=== PATIENT | male | born 2000 | race Hispanic/Latino ===

== ENCOUNTER 2025-04-11 13:38 | Observation (INO) | payer BC ==
[2025-04-11] VITALS (18 sets, daily range): BP systolic 104–119; BP diastolic 56–73; PULSE 60–76; RESP 13–20; TEMP 96.8–97.9
[~2025-04-11] VITALS: Ht 177.8 cm; Wt 74.6 kg
--- NOTE | 2025-04-11 13:48 | ERN ---
ED Note History of Present Illness Stated Complaint: ABD PAIN Chief Complaint: Abdominal Pain Time Seen by MD: 13:45 Dictation: PATIENT IS A 24-YEAR-OLD MALE HERE WITH HIS MOTHER WITH COMPLAINTS OF DIFFUSE LOWER ABDOMINAL PAIN FOR TWO DAYS. HE DENIES FEVER CHILLS NAUSEA VOMITING NO CHANGE IN URINATION. STATES HIS LAST BOWEL MOVEMENT WAS YESTERDAY AND IT WAS NORMAL. NO PRIMARY CARE DOCTOR HAS NOT TAKEN ANYTHING TODAY PRIOR TO ARRIVAL FOR PAIN. FULL WEIGHT-BEARING WALKING TO HIS ROOM. Allergies: Coded Allergies: No Known Drug Allergies (Unverified Allergy, Unknown, 04/11/25) Past Medical History Past Medical History: No Pertinent History Surgical History: None RN Note Reviewed/Agreed w/PFSH: Yes Review of System Dictation CONSTITUTIONAL: NEGATIVE EXCEPT FOR HPI HEAD/FACE: NEGATIVE EXCEPT FOR HPI EENT: NEGATIVE EXCEPT FOR HPI RESPIRATORY: NEGATIVE EXCEPT FOR HPI GASTROINTESTINAL/ABDOMINAL: NEGATIVE EXCEPT FOR HPI DIFFUSE LOWER ABDOMINAL PAIN GENITOURINARY: NEGATIVE EXCEPT FOR HPI MUSCULOSKELETAL: NEGATIVE EXCEPT FOR HPI INTEGUMENTARY: NEGATIVE EXCEPT FOR HPI NEUROLOGICAL/PSYCH: NEGATIVE EXCEPT FOR HPI HEMATOLOGIC/LYMPHATIC: NEGATIVE EXCEPT FOR HPI ALL SYSTEMS NEGATIVE, EXCEPT NOTED ABOVE. 13 POINT REVIEW OF SYSTEMS ASSESSED AND ALL NEGATIVE EXCEPT FOR ABOVE. Initial Vital Sign VS Vital Signs Date Time Temp Pulse Resp B/P (MAP) Pulse Ox O2 Delivery O2 Flow Rate FiO2 04/11/25 13:41 99.0 89 18 122/78 97 Room Air 0 04/11/25 14:11 21 Physical Exam Dictation VITAL SIGNS REVIEWED GENERAL APPEARANCE: ALERT, ORIENTED X 3, MY ACUTE DISTRESS, WELL DEVELOPED, NOURISHED. HEAD AND FACE: NON-TRAUMATIC. EYES: PERRL, PINK CONJUNCTIVAS, EYELID NO TRAUMA, ANTERIOR CHAMBER WITH ARCUS SENILIS. EARS: PINNAS INTACT AND NO SIGNS OF TRAUMA OR ERYTHEMA EAR CANALS CLEAR AND NO DISCHARGE TM NO ERYTHEMA NOSE: NO DISCHARGE, NO BLEEDING. OROPHARYNX: MOUTH NORMAL, TONGUE PINK, PHARYNX CLEAR,NO ERYTHEMA, TONSILS NO EXUDATES, NO ABSCESSES NOTED, MUCOUS MEMBRANE MOIST NECK: SUPPLE, NON-TENDER, NO THYROMEGALY, NO MASSES, NO JVD, NO BRUITS BREAST:DEFERRED CHEST:NO TENDERNESS, NO CREPITUS, NO PARADOXICAL MOVEMENT, NO RETRACTIONS LUNGS:CLEAR, WELL-VENTILATED, SYMMETRIC, NO RALES, NO WHEEZING, NO RHONCHI, NO STRIDOR, GOOD BREATH SOUNDS BILATERALLY HEART: REGULAR RATE, REGULAR RHYTHM, NO MURMUR, NO GALLOPS VA MILD PERIUMBILICAL TENDERNESS WITH PALPATION. NO REBOUND TENDERNESS. NEGATIVE CVAT BILATERALLY RECTAL: DEFERRED GENITAL: DEFERRED NEUROLOGICAL: NORMAL SPEECH, MOTOR FUNCTION INTACT, SENSORY FUNCTION INTACT MUSCULOSKELETAL: NECK NONTENDER, FULL RANGE OF MOTION, BACK NONTENDER, FULL RANGE OF MOTION, EXTREMITIES: NONTENDER, FULL RANGE OF MOTION SKIN: COLOR PINK, DRY, NO TURGOR, NO RASH, NO LACERATIONS, NO ABRASIONS, NO CONTUSIONS. LYMPHATIC: DEFERRED Results (Laboratory/Radiology) Laboratory/Radiology Laboratory Tests Test 04/11/25 13:53 White Blood Count 12.8 K/uL (4.8-10.8) H Red Blood Count 5.30 MIL/uL (4.50-6.20) Hemoglobin 15.3 g/dL (14.0-18.0) Hematocrit 45.0 % (42-54) Mean Corpuscular Volume 84.9 fL (79-99) Mean Corpuscular Hemoglobin 28.9 pg (27.0-33.0) Mean Corpuscular Hemoglobin Concent 34.0 g/dL (32.0-36.0) Red Cell Distribution Width 13.2 % (11.0-15.5) Platelet Count 283 K/uL (130-400) Mean Platelet Volume 9.4 fL (7.5-10.5) Immature Granulocyte % (Auto) 0.2 % (0-1) Neutrophils (%) (Auto) 68.4 % (40.0-77.0) Lymphocytes (%) (Auto) 19.3 % (21.0-51.0) L Monocytes (%) (Auto) 9.5 % (3.0-13.0) Eosinophils (%) (Auto) 2.3 % (0.0-8.0) Basophils (%) (Auto) 0.3 % (0.0-5.0) Neutrophils # (Auto) 8.8 K/uL (1.8-7.7) H Lymphocytes # (Auto) 2.5 K/uL (1.0-4.8) Monocytes # (Auto) 1.2 K/uL (0.1-1.0) H Eosinophils # (Auto) 0.30 K/uL (0.00-0.70) Basophils # (Auto) 0.04 K/uL (0.00-0.20) Absolute Immature Granulocyte (auto 0.03 K/uL (0-1) Nucleated Red Blood Cells 0.0 % (0.0-0.19) Urine Color YELLOW (YELLOW) Urine Appearance CLEAR (CLEAR) Urine pH 6.0 (5.0-8.0) Urine Specific [place] 1.033 (1.001-1.031) Urine Protein 30 mg/dL (NEGATIVE) H Urine Glucose (UA) NEGATIVE mg/dL (NEGATIVE) Urine Ketones 5 mg/dL (NEGATIVE) H Urine Occult Blood NEGATIVE (NEGATIVE) Urine Nitrate NEGATIVE (NEGATIVE) Urine Bilirubin NEGATIVE mg/dL (NEGATIVE) Urine Urobilinogen 4.0 mg/dL (0.2-1.0) H Urine Leukocyte Esterase NEGATIVE Yeni/uL Urine RBC 2-5 /HPF (0-1) H Urine WBC 2-5 /HPF (0-1) H Urine Squamous Epithelial Cells RARE /HPF (0-2) Urine Bacteria None /HPF (None Seen) Sodium Level 142 mmol/L (136-145) Potassium Level 3.4 mmol/L (3.5-5.1) L Chloride Level 100 mmol/L (101-111) L Carbon Dioxide Level 31 mmol/L (21-32) Blood Urea Nitrogen 7 mg/dL (7-18) Creatinine 0.9 mg/dL (0.5-1.3) Glomerular Filtration Rate Calc 124 mL/min (>90) Random Glucose 110 mg/dL (70-105) H Total Calcium 9.5 mg/dL (8.5-10.1) Lipase 18 U/L (16-77) 1508/RIGHT LOWER QUADRANT ULTRASOUND NONSPECIFIC FO APPENDICITIS. WE WILL FOLLOW WITH CT WITH IV CONTRAST TO RULE The lung bases appear clear. No pleural effusions are seen. LIVER: The liver is diffusely low in density, consistent with fatty infiltration. There are no focal hepatic lesions. GALLBLADDER AND BILE DUCTS: The gallbladder appears within normal limits. No radioopaque gallstones are seen. No biliary ductal dilatation is evident. PANCREAS: Unremarkable. SPLEEN: Unremarkable. ADRENAL GLANDS: Unremarkable. KIDNEYS, URETERS, AND BLADDER: The kidneys appear within normal limits. There is no hydronephrosis or hydroureter. No urinary calculi are seen. STOMACH AND BOWEL: Unremarkable appearance of the stomach and bowel. No evidence of bowel obstruction. No evidence suggesting enteritis or colitis. APPENDIX: Thickened appendix with adjacent stranding, consistent with acute appendicitis. PERITONEUM: Small amount of free fluid. No free air or fluid collection. LYMPH NODES: No lymphadenopathy is evident. REPRODUCTIVE: Unremarkable as visualized. VASCULATURE: No evidence of abdominal aortic aneurysm. BONES: No aggressive appearing osseous lesion. No acute osseous pathology evident. IMPRESSION: 1. Thickened appendix with adjacent stranding, consistent with acute appendicitis. 2. Small amount of free fluid. No free air or fluid collection. /[facility] Labs Reviewed?: Yes ED Course ED Course Orders Procedure Category Date Status Time Cbc With Differential LAB 04/11/25 Complete 13:47 Urinalysis Profile LAB 04/11/25 Complete 13:47 0.9%Nacl 1000ml (Ns PHA 04/11/25 Complete 1000ml) 14:00 Ketorolac PHA 04/11/25 Complete Tromethamine 30mg/Ml 14:00 Lipase LAB 04/11/25 Complete 13:47 Basic Metabolic Panel LAB 04/11/25 Complete 13:47 Us Abd Limited/Abd US 04/11/25 Resulted Wall 14:07 Ct Abdomen/Pelvis CT 04/11/25 Resulted W/Contrast 15:08 Iohexol (Omnipaque) PHA 04/11/25 Complete 15:19 Zosyn 3.375gm+Ns 50ml PHA 04/11/25 Complete (Zosyn 3.375gm+Ns 16:00 General Surgery CONPHYSVC 04/11/25 Transmitted Consult 16:03 Current Medications Medications (Trade) Dose Ordered Sig/[place] Route PRN Reason Start Time Stop Time Status Last Admin Dose Admin Iohexol (Omnipaque) 75 ml STK-MED ONCE IV 04/11/25 15:19 04/11/25 15:23 DC Ketorolac Tromethamine (toRADol) 30 mg ONCE ONCE IVP 04/11/25 14:00 04/11/25 14:01 DC 04/11/25 14:08 Piperacillin Sod/ Tazobactam Sod (Zosyn 3.375gm+NS 50ml) 3.375 gm ONCE ONCE IVPB 04/11/25 16:00 04/11/25 16:01 DC 04/11/25 16:16 Sodium Chloride 1,000 ml @ 0 mls/hr ONCE ONCE IV 04/11/25 14:00 04/11/25 14:01 DC 04/11/25 14:07 Vital Signs Date Time Temp Pulse Resp B/P (MAP) Pulse Ox O2 Delivery O2 Flow Rate FiO2 04/11/25 14:11 98.1 82 16 130/79 98 Room Air* 0 21 04/11/25 13:41 99.0 89 18 122/78 97 Room Air 0 1600/SPOKE WITH PATIENT AT BEDSIDE MOTHER WAS NOT AT BEDSIDE AT THE PRESENT TIME. HE HAS MADE AWARE THAT HE HAS A ACUTE APPENDICITIS I WILL START HIM ON BROAD-SPECTRUM ANTIBIOTICS AND HE WILL BE ADMITTED TO THE HOSPITAL WITH CONSULTATION TO GENERAL SURGERY. 1628/SPOKE WITH /GENERAL SURGERY AND REVIEWED CT AND LABS HE SAID TO MAINTAIN PATIENT NPO AND HE WOULD PROBABLY TAKE HIM TO SURGERY THIS AFTERNOON. SPOKE WITH , HE AGREED TO ADMIT PATIENT Medical Decision Making MDM MDM: DIFFERENTIAL DIAGNOSIS: APPENDICITIS VERSUS DIVERTICULITIS/UTI/HERNIA/ELECTROLYTE IMBALANCE/DEHYDRATION RATIONALE: TESTS CONSIDERED AND ORDERED SECONDARY TO SHARED DECISION MAKING INCLUDE: LABS, AND RADIOLOGY PREVIOUS OUTSIDE RECORDS REVIEWED: OLD ER VISITS. RISK OF COMPLICATION AND/OR MORBIDITY OR MORTALITY OF PATIENT MANAGEMENT: MODERATE MEDICATIONS-PER MEDICATION RECONCILIATION NEED FOR HOSPITALIZATION: PATIENT DOES MEET CRITERIA FOR HOSPITALIZATION. SURGICAL CONSULTATION WITH APPENDECTOMY NEED FOR EMERGENCY MAJOR/MINOR SURGERY: APPENDECTOMY THERE ARE NO SOCIAL CONCERNS WITH THIS PATIENT. PRESCRIPTION DRUG MANAGEMENT PRESCRIPTIONS WILL INCLUDE SYMPTOMATIC CARE PATIENT'S PRIOR EXTERNAL MEDICAL RECORDS FROM OTHER ER VISITS WERE REVIEWED BY ME INDICATED. PRIOR TESTING AND RESULTS FROM PREVIOUS VISITS WERE REVIEWED. PRIOR TESTS WERE TAKEN INTO ACCOUNT WITH MEDICAL DECISION MAKING AND RESOURCE UTILIZATION, INDEPENDENT HISTORIAN/HISTORIANS WERE USED TO OBTAIN COMPLETE MEDICAL HISTORY. I INDEPENDENTLY INTERPRETED THE TEST THAT WERE PERFORMED, RESULTS WERE REVIEWED BY ME AND CONSIDERED FINDINGS ON RADIOLOGY IF ORDERED. MEDICAL MANAGEMENT AND EXAMINATION INTERPRETATION DISCUSSIONS WERE HAD BY ME WITH OTHER QUALIFIED HEALTHCARE PROFESSIONALS INDICATED FOR THE PATIENT'S CARE. DX & DISP Disposition: Inpatient Decision to Admit Time: 16:05 Departure Impression: Primary Impression: Acute appendicitis Condition: Stable Referrals: SELF,REFERRAL (PCP) Time of Disposition: 16:05 I have reviewed the case, and I agree with, Diagnosis and Plan AJITH BROTHERS [employer] REP Apr 11, 2025 13:48
[2025-04-11 14:00] LABS: BASOPHILS # (AUTO) 0.04 K/uL (0.00-0.20); BASOPHILS % (AUTO) 0.3 % (0.0-5.0); EOSINOPHILS % (AUTO) 2.3 % (0.0-8.0); IMMATURE GRANULOCYTE ABSOLUTE 0.03 K/uL (0-1); LYMPHOCYTES # (AUTO) 2.5 K/uL (1.0-4.8); LYMPHOCYTES % (AUTO) 19.3 % (21.0-51.0); MEAN CORPUSCULAR HEMOGLOBIN 28.9 pg (27.0-33.0); MEAN CORPUSCULAR VOLUME 84.9 fL (79-99); MONOCYTES # (AUTO) 1.2 K/uL (0.1-1.0); MONOCYTES % (AUTO) 9.5 % (3.0-13.0); NEUTROPHILS # (AUTO) 8.8 K/uL (1.8-7.7); NEUTROPHILS % (AUTO) 68.4 % (40.0-77.0); PLATELET COUNT (AUTO) 283 K/uL (130-400); RED CELL DISTRIBUTION WIDTH 13.2 % (11.0-15.5); WHITE BLOOD COUNT (AUTO) 12.8 K/uL (4.8-10.8)
[2025-04-11 14:07] LABS: APPEARANCE,URINE CLEAR (CLEAR); BILIRUBIN,URINE NEGATIVE (NEGATIVE); COLOR,URINE YELLOW (YELLOW); GLUCOSE, URINE (UA) NEGATIVE (NEGATIVE); KETONES,URINE 5 mg/dL (NEGATIVE); LEUKOCYTE ESTERASE ,URINE NEGATIVE Leu/uL (NEGATIVE); NITRATE,URINE NEGATIVE (NEGATIVE); OCCULT BLOOD,URINE NEGATIVE (NEGATIVE); PROTEIN,URINE 30 mg/dL (NEGATIVE)
[2025-04-11] MEDS: 0.9%NACL 1000ML 1,000 ML IV ONE (14:07)
[2025-04-11] MEDS: ketOROlac 30MG VIAL (30MG/ML) IVP ONE (14:08)
[2025-04-11 14:09] LABS: ADD UA MICROSCOPIC YES
[2025-04-11 14:11] LABS: MUCUS,URINE FEW LPF (None Seen); SQUAMOUS EPITHELIAL CELL,UR RARE /HPF (0-2)
[2025-04-11 14:17] LABS: CREATININE 0.9 mg/dL (0.5-1.3); POTASSIUM 3.4 mmol/L (3.5-5.1)
[2025-04-11] MEDS ORDERED: IOHEXOL-350 75 ML VIAL IV ONE (15:19)
--- NOTE | 2025-04-11 15:54 | HMCIMG ---
EXAM: CT Abdomen and Pelvis with IV contrast CLINICAL HISTORY: PERIUMBILICAL AND RIGHT LOWER QUADRANT PAIN TENDERNESS TECHNIQUE: Axial computed tomography images of the abdomen and pelvis with intravenous contrast. CONTRAST: with intravenous contrast. COMPARISON: None provided. FINDINGS: LUNG BASES: The lung bases appear clear. No pleural effusions are seen. LIVER: The liver is diffusely low in density, consistent with fatty infiltration. There are no focal hepatic lesions. GALLBLADDER AND BILE DUCTS: The gallbladder appears within normal limits. No radioopaque gallstones are seen. No biliary ductal dilatation is evident. PANCREAS: Unremarkable. SPLEEN: Unremarkable. ADRENAL GLANDS: Unremarkable. KIDNEYS, URETERS, AND BLADDER: The kidneys appear within normal limits. There is no hydronephrosis or hydroureter. No urinary calculi are seen. STOMACH AND BOWEL: Unremarkable appearance of the stomach and bowel. No evidence of bowel obstruction. No evidence suggesting enteritis or colitis. APPENDIX: Thickened appendix with adjacent stranding, consistent with acute appendicitis. PERITONEUM: Small amount of free fluid. No free air or fluid collection. LYMPH NODES: No lymphadenopathy is evident. REPRODUCTIVE: Unremarkable as visualized. VASCULATURE: No evidence of abdominal aortic aneurysm. BONES: No aggressive appearing osseous lesion. No acute osseous pathology evident. IMPRESSION: 1. Thickened appendix with adjacent stranding, consistent with acute appendicitis. 2. Small amount of free fluid. No free air or fluid collection. /[place]
--- NOTE | 2025-04-11 16:12 | HMCIMG ---
EXAM: US examination Appendix CLINICAL HISTORY: PERIUMBILICAL AND LEFT LOWER QUADRANT TENDERNESS RULE OUT APPY TECHNIQUE: Real-time ultrasound examination performed with image documentation. COMPARISON: None provided. FINDINGS: A noncompressible tubular structure measuring 10 mm is noted in the right lower quadrant which likely represents an inflamed appendix. IMPRESSION: Noncompressible tubular structure measuring 10 mm is noted in the right lower quadrant which likely represents an inflamed appendix. This likely represents acute appendicitis and clinical correlation is recommended. /[place]
[2025-04-11] MEDS: ZOSYN 3.375GM +NS 50ML IVPB ONE (16:16)
--- NOTE | 2025-04-11 16:48 | HP ---
[facility] HISTORY AND PHYSICAL Date of Service: Apr 11, 2025 Time of Service: 16:48 HISTORY OF PRESENT ILLNESS: This 24-year-old male with no significant past medical history who presented to the hospital secondary to abdominal pain. The patient states his pain has been present for the past two days and is localized mostly in the right lower quadrant. He denied any nausea, vomiting, changes in his appetite, changes in his bowel movement. Denied any any melena, hematochezia, hematemesis. Denied any fever, chills, shortness for breath, chest pain at rest or with exertion, history of bleeding disorder. He had a previous surgery when he was 14 years old in the left arm secondary to trauma. He is active at home and denies any falls, syncopal episode. Patient's brother is present at bedside. Denied any other symptoms. Denied any dysuria, myalgia, new onset rash. Labs showed white count of 12.8, hemoglobin was 15.3, platelet count was 283 K, sodium was 142 potassium was 3.4, creatinine is 0.[address] abdomen pelvis findings which was consistent with acute appendicitis. REVIEW OF SYSTEMS CONSTITUTIONAL: Denies fevers, chills, or night sweats. No unintentional weight loss reported. NEUROLOGICAL: Denies headache, amaurosis fugax, motor weakness, sensory deficit, vertigo/spinning sensation, gait abnormalities, or tremors. ENT: No hearing loss, otalgia, otorrhea, rhinitis, rhinorrhea, hoarseness, or sore throat. CARDIOVASCULAR: Denies any exertional angina, dyspnea on exertion, orthopnea, paroxysmal nocturnal dyspnea, palpitations, life-threatening arrhythmias, claudication. PULMONARY: Denies any shortness of breath, cough, phlegm/sputum, hemoptysis, pleuritic chest pain. GASTROINTESTINAL: Positive for abdominal pain. Denied any nausea, vomiting, diarrhea, constipation melena, hematochezia, hematemesis GENITOURINARY: Denies frequency, urgency, nocturia, hematuria or incontinence (Storage/Irritative symptoms.) Low urinary stream, straining to void, urinary intermittency or hesitancy, splitting of the voiding stream, terminal dribbling. ENDOCRINOLOGIC: Denies polyuria, polydipsia, polyphagia or heat/cold intolerances. HEMATOLOGIC: Denies thrombophilia/previous clots, or coagulopathy/bleeding disorders. ONCOLOGIC: Denies personal history of malignancy. DERMATOLOGIC: Denies rashes or pruritus. PSYCHIATRIC: Denies any suicidal or homicidal ideation. Denies hallucinations. PAST MEDICAL HISTORY: No significant past medical history PAST SURGICAL HISTORY: He has had surgery on the left arm PAST SOCIAL HISTORY: Denied any smoking, alcohol, drug FAMILY HISTORY: Denied any pertinent family history Coded Allergies: No Known Drug Allergies (Unverified Allergy, Unknown, 04/11/25) PHYSICAL EXAM GENERAL APPEARANCE: The patient is awake, alert, and oriented, in no acute cardiopulmonary distress. NEUROLOGICAL: Cranial nerves II-XII grossly intact. Motor is 5/5 in bilateral upper and lower extremities proximal to distal. No sensory deficits. HEENT: Face is symmetric. Pupils are equal and reactive. Extraocular movements are intact. NECK: Supple. No JVD. No thyromegaly. No submental, submandibular, pre- /postauricular, occipital or supraclavicular lymphadenopathy. CHEST: Normal chest expansion. No Telemetry. LUNGS: Absence of any rales, rhonchi or any wheezing. CARDIOVASCULAR: Regular. S1 and S2 normal. No appreciable rubs, murmurs or gallops. ABDOMEN: Soft, tenderness to palpation in the right lower quadrant. No rebound, no guarding present. : Deferred. No Terry. EXTREMITIES: Non-edematous and not cyanotic. No clubbing. Good capillary refill. SKIN: No skin breakdown. Vital Sign (Last 24 Hours) 04/11/25 14:11 Temp 98.1 Pulse 82 Resp 16 B/P (MAP) 130/79 Pulse Ox 98 O2 Delivery Room Air* O2 Flow Rate 0 FiO2 21 LABS: Laboratory: Test 04/11/25 13:53 Range/Units White Blood Count 12.8 H 4.8-10.8 K/uL Red Blood Count 5.30 4.50-6.20 MIL/uL Hemoglobin 15.3 14.0-18.0 g/dL Hematocrit 45.0 42-54 % Mean Corpuscular Volume 84.9 79-99 fL Mean Corpuscular Hemoglobin 28.9 27.0-33.0 pg Mean Corpuscular Hemoglobin Concent 34.0 32.0-36.0 g/dL Red Cell Distribution Width 13.2 11.0-15.5 % Platelet Count 283 130-400 K/uL Mean Platelet Volume 9.4 7.5-10.5 fL Immature Granulocyte % (Auto) 0.2 0-1 % Neutrophils (%) (Auto) 68.4 40.0-77.0 % Lymphocytes (%) (Auto) 19.3 L 21.0-51.0 % Monocytes (%) (Auto) 9.5 3.0-13.0 % Eosinophils (%) (Auto) 2.3 0.0-8.0 % Basophils (%) (Auto) 0.3 0.0-5.0 % Neutrophils # (Auto) 8.8 H 1.8-7.7 K/uL Lymphocytes # (Auto) 2.5 1.0-4.8 K/uL Monocytes # (Auto) 1.2 H 0.1-1.0 K/uL Eosinophils # (Auto) 0.30 0.00-0.70 K/uL Basophils # (Auto) 0.04 0.00-0.20 K/uL Absolute Immature Granulocyte (auto 0.03 0-1 K/uL Nucleated Red Blood Cells 0.0 0.0-0.19 % Urine Color YELLOW YELLOW Urine Appearance CLEAR CLEAR Urine pH 6.0 5.0-8.0 Urine Specific [place] 1.033 H 1.001-1.031 Urine Protein 30 H NEGATIVE mg/dL Urine Glucose (UA) NEGATIVE NEGATIVE mg/dL Urine Ketones 5 H NEGATIVE mg/dL Urine Occult Blood NEGATIVE NEGATIVE Urine Nitrate NEGATIVE NEGATIVE Urine Bilirubin NEGATIVE NEGATIVE mg/dL Urine Urobilinogen 4.0 H 0.2-1.0 mg/dL Urine Leukocyte Esterase NEGATIVE NEGATIVE Yeni/uL Urine RBC 2-5 H 0-1 /HPF Urine WBC 2-5 H 0-1 /HPF Urine Squamous Epithelial Cells RARE 0-2 /HPF Urine Bacteria None None Seen /HPF Sodium Level 142 136-145 mmol/L Potassium Level 3.4 L 3.5-5.1 mmol/L Chloride Level 100 L 101-111 mmol/L Carbon Dioxide Level 31 21-32 mmol/L Blood Urea Nitrogen 7 7-18 mg/dL Creatinine 0.9 0.5-1.3 mg/dL Glomerular Filtration Rate Calc 124 >90 mL/min Random Glucose 110 H 70-105 mg/dL Total Calcium 9.5 8.5-10.1 mg/dL Lipase 18 16-77 U/L DIAGNOSTICS / RADIOLOGY: CT abdomen is concerning for acute appendicitis. ASSESSMENT: Acute appendicitis POA PLAN: - patient to be admitted to medical-surgical unit -in reference to acute appendicitis. The patient will be started on IV Zosyn, IV fluids. The patient will be NPO for now. Patient was evaluated by surgery who recommended surgery. Plan for tentative surgery. - obtain PT and PTT, obtain a type and screen -further orders for hospitalization Plan of care was discussed with patient and patient's brother at bedside. Advanced Care Planning Which of the following were discussed: Hospice care: Yes __ No _x_ Therapeutic options: Yes __ No __ Advance directives: Yes __ No __ Other discussions: Pt is full code Discussed with who?: patient (Patient, family or surrogates) Voluntary nature of this service was explained to the patient? Yes _x_ No __ Amount of time spent: 25 minutes GOMEZ Garner MD, MD Apr 11, 2025 16:48
[2025-04-11] MEDS ORDERED: morPHINE 2 MG SYG IVP PRN (17:00)
[2025-04-11] MEDS: 0.9%NACL 1000ML 1,000 ML IV SCH (17:02)
[2025-04-11 17:07] LABS: INR 0.95 (0.85-1.15); PROTHROMBIN TIME 10.1 SEC (9.6-11.6)
[2025-04-11 17:09] LABS: PARTIAL THROMBOPLASTIN TIME 32.1 SEC (26.3-35.5)
[2025-04-11] MEDS ORDERED: LIDOCAINE PF 100MG/5ML (2%) SYRINGE 5ML ONE (18:14)
[2025-04-11] MEDS ORDERED: dexaMETHasone SOD PHOSPHATE 4 MG/ML 1ML VIAL ONE (18:14)
[2025-04-11] MEDS ORDERED: rocuRONium bROMide 10MG/1ML 5ML VL ONE (18:15)
[2025-04-11] MEDS ORDERED: SUCCINYLCHOLINE CHLORIDE 20 MG/ML 10 ML VIAL ONE (18:15)
[2025-04-11] MEDS ORDERED: MIDAZOLAM HCL 1 MG/ML 2ML VIAL ONE (18:15)
[2025-04-11] MEDS ORDERED: FENTanyl CITRate PF 50 MCG/1 ML 2ML VIAL ONE ×2 (18:15→18:48)
[2025-04-11] MEDS ORDERED: proPOFol 10 MG/ML 20ML VIAL IV ONE (18:15)
[2025-04-11] MEDS ORDERED: ondanSETRON 4MG INJ ONE (18:15)
[2025-04-11] MEDS ORDERED: ROPivacaine 0.5% 5MG/ML 30ML ONE (18:17)
[2025-04-11] MEDS ORDERED: morPHINE 2 MG SYG IV PRN (18:30)
[2025-04-11] MEDS ORDERED: ondanSETRON 4MG INJ IVP PRN (18:30)
[2025-04-11] MEDS ORDERED: GLYCOPYRROLATE 0.2 MG/ML 5 ML VIAL ONE (18:58)
[2025-04-11] MEDS ORDERED: NEOSTIGMINE METHYLSULFATE 1MG/ML IV ONE (18:58)
[2025-04-11] MEDS ORDERED: SUGAMMADEX SODIUM 200 MG/2 ML VIAL IV ONE (19:12)
--- NOTE | 2025-04-11 19:13 | OP ---
Operative Note: DATE OF PROCEDURE: 04/11/25 SURGEON: MARIE ERAZO MD CATECHIST: [] ANESTHESIA: [] General ANESTHESIOLOGIST/CARDIAC MONITOR TECHNICIAN: [] PREOPERATIVE DIAGNOSIS: [] Acute appendicitis POSTOPERATIVE DIAGNOSIS: [] The same SYNOPSIS: [] PROCEDURE: [] Laparoscopic appendectomy ESTIMATED BLOOD LOSS: [] INDICATIONS: [] DESCRIPTION OF PROCEDURE: []With the patient prepped and draped in usual fashion supraumbilical incision was done. Using direct technique I was able to place a balloon trocar and abdomen insufflated. Two 5 mm trochars were inserted under direct vision in the lower abdomen. Immediately we identified an inflamed appendix and a window was created in the base and the appendix. Using a laparoscopic 45 mm HELIO white stapler I transected the base of appendix. I used a reload to transect the mesoappendix. The appendix was placed in a bag. After adequate hemostasis and irrigation in the area I remove all the trochars under direct vision and the appendix through the supraumbilical incision. The fascia was closed with the 0 Vicryl [id number]. All incisions were closed with staplers. I placed 20 cc of local. Patient tolerated procedure without complication MARIE ERAZO MD Apr 11, 2025 19:13
[2025-04-11] MEDS ORDERED: ketOROlac 15MG/ML VIAL (15MG/ML) IV PRN (20:00)
--- NOTE | 2025-04-11 20:15 | NUR ---
RECEIVED PATIENT FROM PACU HE IS AWAKE AND ORIENTED, REPORTS 0/10 PAIN AND IS ON ROOM AIR. HE HAS X3 INCISIONS COVERED WITH DERMABOND DRESSING, DRY AND INTACT. PATIENT REPORTS HE IS ALREADY VOIDING. BED IS LOW SIDERAILS X2 AND CALL LIGHT IN REACH. PATIENT'S MOTHER AT BEDSIDE.
[2025-04-11] MEDS ORDERED: ZOSYN 3.375GM+NS 50ML 50 ML IV SCH (21:00)
[2025-04-11] MEDS: FAMOTIDINE 20MG VIAL IV SCH (21:06)
[2025-04-12] VITALS: BP 118/64; PULSE 66
[2025-04-12 01:00] VITALS: BP 119/72; PULSE 71; RESP 20; TEMP 97.5
[2025-04-12] MEDS ORDERED: 0.9%NACL 50ML IV SCH (01:00)
[2025-04-12] MEDS: ZOSYN 3.375GM +NS 50ML IVPB SCH (01:10)
[2025-04-12] MEDS: morPHINE 4 MG SYG IV PRN (01:12)
[2025-04-12 04:51] VITALS: BP 134/74; PULSE 71; RESP 20; TEMP 98.6
[2025-04-12 06:53] LABS: BASOPHILS # (AUTO) 0.01 K/uL (0.00-0.20); BASOPHILS % (AUTO) 0.1 % (0.0-5.0); HEMATOCRIT 41.3 % (42-54); IMMATURE GRANULOCYTE ABSOLUTE 0.04 K/uL (0-1); LYMPHOCYTES # (AUTO) 1.1 K/uL (1.0-4.8); LYMPHOCYTES % (AUTO) 9.2 % (21.0-51.0); MEAN CORPUSCULAR HEMOGLOBIN 28.3 pg (27.0-33.0); MEAN CORPUSCULAR HGB CONC 33.4 g/dL (32.0-36.0); MEAN CORPUSCULAR VOLUME 84.6 fL (79-99); MONOCYTES # (AUTO) 0.6 K/uL (0.1-1.0); MONOCYTES % (AUTO) 5.3 % (3.0-13.0); NEUTROPHILS # (AUTO) 9.7 K/uL (1.8-7.7); PLATELET COUNT (AUTO) 269 K/uL (130-400); RED BLOOD CELL COUNT(AUTO) 4.88 MIL/uL (4.50-6.20); RED CELL DISTRIBUTION WIDTH 13.2 % (11.0-15.5); WHITE BLOOD COUNT (AUTO) 11.4 K/uL (4.8-10.8)
[2025-04-12 07:00] LABS: CREATININE 0.7 mg/dL (0.5-1.3); POTASSIUM 3.7 mmol/L (3.5-5.1)
[2025-04-12 07:42] VITALS: BP 116/66; PULSE 68; RESP 18; TEMP 98.6
[2025-04-12] MEDS: LACTATED RINGERS 1000ML 1,000 ML IV SCH (07:50)
[2025-04-12 08:30] VITALS: O2SAT 98
--- NOTE | 2025-04-12 10:21 | NUR ---
DCP: HOME Pt currently lives at home with mom Marbella Mark [phone]. Pt does not report any insecurities with food, long-term, and/or utilities. Pt does not have any DME, home health, or provider services. Pt is able to complete ADLs independently. PCP is [facility] [place] and uses [facility] for any RX needs. At DC pt will go home and mom can assist with transportation. Addendum: 04/12/25 at 1024 by MAIK HUGHES SS Amended: Links added.
--- NOTE | 2025-04-12 11:17 | PN ---
Patient is postop day one after laparoscopic appendectomy. Patient is hemodynamically stable. The patient is tolerating liquid diet. I have indicated the nurses that the patient could do it. Best and he could be released today from my point of view. We will see him in couple of weeks to remove Vitals/Labs Vital Signs Date Time Temp Pulse Resp B/P (MAP) Pulse Ox O2 Delivery O2 Flow Rate FiO2 04/12/25 08:30 98 Room Air* 0 21 04/12/25 07:42 98.6 68 18 116/66 Laboratory Tests 04/11/25 13:53 04/12/25 06:49 MARIE ERAZO MD Apr 12, 2025 11:17
[2025-04-12 11:35] VITALS: BP 106/62; PULSE 65; RESP 18; TEMP 98.1
--- NOTE | 2025-04-12 13:57 | DS ---
Discharge Summary Hospital Course Summary: This 24-year-old male with no significant past medical history who presented to the hospital secondary to abdominal pain. The patient states his pain has been present for the past two days and is localized mostly in the right lower quadrant. He denied any nausea, vomiting, changes in his appetite, changes in his bowel movement. Denied any any melena, hematochezia, hematemesis. Denied any fever, chills, shortness for breath, chest pain at rest or with exertion, history of bleeding disorder. He had a previous surgery when he was 14 years old in the left arm secondary to trauma. He is active at home and denies any falls, syncopal episode. Patient's brother is present at bedside. Denied any other symptoms. Denied any dysuria, myalgia, new onset rash. Labs showed white count of 12.8, hemoglobin was 15.3, platelet count was 283 K, sodium was 142 potassium was 3.4, creatinine is 0.[address] abdomen pelvis findings which was consistent with acute appendicitis. Appendectomy has been done and the patient feels better. Patient only complains of mild pain otherwise asymptomatic, labs are stable inpatient is hemodynamically stable and be discharged. Patient to follow up with General surgery in 2 weeks to get the shane removed. Lay Out Maker(s): General surgery Procedure(s): PATIENT: JORDIN MARIN MR#: [id number] : 2000 SEX: M AGE: 24 LOCATION: [facility] ORDER 1408 STATUS: [facility] REPORT#: [id number] SERVICE REASON: PERIUMBILICAL AND LEFT LOWER QUADRANT TENDERNESS RULE OUT APPY ORDERING PHYSICIAN: AJITH BROTHERS NP PROCEDURE: ABD WALL - US ABD LIMITED/ABD WALL EXAM: US examination Appendix CLINICAL HISTORY: PERIUMBILICAL AND LEFT LOWER QUADRANT TENDERNESS RULE OUT APPY TECHNIQUE: Real-time ultrasound examination performed with image documentation. COMPARISON: None provided. FINDINGS: A noncompressible tubular structure measuring 10 mm is noted in the right lower quadrant which likely represents an inflamed appendix. IMPRESSION: Noncompressible tubular structure measuring 10 mm is noted in the right lower quadrant which likely represents an inflamed appendix. This likely represents acute appendicitis and clinical correlation is recommended. /[facility] DICTATED BY: RADHA OQUENDO MD DATE: 04/11/251711 ELECTRONICALLY SIGNED BY: RADHA OQUENDO MD DATE: 04/11/251711 PATIENT: JORDIN MARIN MR#: [id number] : 2000 SEX: M AGE: 24 LOCATION: [facility] ORDER 1509 STATUS: REG ER REPORT#: [id number] SERVICE 1508 REASON: PERIUMBILICAL AND RIGHT LOWER QUADRANT PAIN TENDERNESS ORDERING PHYSICIAN: AJITH BROTHERS NP PROCEDURE: ABD PEL W - CT ABDOMEN/PELVIS W/CONTRAST ADDENDUM REPORT ADDENDUM: Results were shared by telephone at 4:57 pm on 04-11-25 and acknowledged by Ajith Love. /[facility] EXAM: CT Abdomen and Pelvis with IV contrast CLINICAL HISTORY: PERIUMBILICAL AND RIGHT LOWER QUADRANT PAIN TENDERNESS TECHNIQUE: Axial computed tomography images of the abdomen and pelvis with intravenous contrast. CONTRAST: with intravenous contrast. COMPARISON: None provided. FINDINGS: LUNG BASES: The lung bases appear clear. No pleural effusions are seen. LIVER: The liver is diffusely low in density, consistent with fatty infiltration. There are no focal hepatic lesions. GALLBLADDER AND BILE DUCTS: The gallbladder appears within normal limits. No radioopaque gallstones are seen. No biliary ductal dilatation is evident. PANCREAS: Unremarkable. SPLEEN: Unremarkable. ADRENAL GLANDS: Unremarkable. KIDNEYS, URETERS, AND BLADDER: The kidneys appear within normal limits. There is no hydronephrosis or hydroureter. No urinary calculi are seen. STOMACH AND BOWEL: Unremarkable appearance of the stomach and bowel. No evidence of bowel obstruction. No evidence suggesting enteritis or colitis. APPENDIX: Thickened appendix with adjacent stranding, consistent with acute appendicitis. PERITONEUM: Small amount of free fluid. No free air or fluid collection. LYMPH NODES: No lymphadenopathy is evident. REPRODUCTIVE: Unremarkable as visualized. VASCULATURE: No evidence of abdominal aortic aneurysm. BONES: No aggressive appearing osseous lesion. No acute osseous pathology evident. IMPRESSION: 1. Thickened appendix with adjacent stranding, consistent with acute appendicitis. 2. Small amount of free fluid. No free air or fluid collection. /[place] DICTATED BY: RADHA OQUENDO MD DATE: 04/11/25 1700 ELECTRONICALLY SIGNED BY: DATE: EXAM: CT Abdomen and Pelvis with IV contrast CLINICAL HISTORY: PERIUMBILICAL AND RIGHT LOWER QUADRANT PAIN TENDERNESS TECHNIQUE: Axial computed tomography images of the abdomen and pelvis with intravenous contrast. CONTRAST: with intravenous contrast. COMPARISON: None provided. FINDINGS: LUNG BASES: The lung bases appear clear. No pleural effusions are seen. LIVER: The liver is diffusely low in density, consistent with fatty infiltration. There are no focal hepatic lesions. GALLBLADDER AND BILE DUCTS: The gallbladder appears within normal limits. No radioopaque gallstones are seen. No biliary ductal dilatation is evident. PANCREAS: Unremarkable. SPLEEN: Unremarkable. ADRENAL GLANDS: Unremarkable. KIDNEYS, URETERS, AND BLADDER: The kidneys appear within normal limits. There is no hydronephrosis or hydroureter. No urinary calculi are seen. STOMACH AND BOWEL: Unremarkable appearance of the stomach and bowel. No evidence of bowel obstruction. No evidence suggesting enteritis or colitis. APPENDIX: Thickened appendix with adjacent stranding, consistent with acute appendicitis. PERITONEUM: Small amount of free fluid. No free air or fluid collection. LYMPH NODES: No lymphadenopathy is evident. REPRODUCTIVE: Unremarkable as visualized. VASCULATURE: No evidence of abdominal aortic aneurysm. BONES: No aggressive appearing osseous lesion. No acute osseous pathology evident. IMPRESSION: 1. Thickened appendix with adjacent stranding, consistent with acute appendicitis. 2. Small amount of free fluid. No free air or fluid collection. /[place] DICTATED BY: RADHA OQUENDO MD DATE: 04/11/251652 ELECTRONICALLY SIGNED BY: RADHA OQUENDO MD DATE: 04/11/251652 Assessment/Plan: ASSESSMENT: Acute appendicitis POA Hypokalemia POA resolved Status post Appendectomy Discharge Instructions: Rest at home for next few days Avoid strenuous activities or heavy lifting You may walk and climb stairs as tolerated Resume normal activities gradually Keep the incision site clean and dry You may shower in 24-48 hours Do not soak in a bathtub or pool or hot tub until the wounds are fully healed Start with light, soft foods and advance to a regular diet Drink Plenty of fluids Follow up with General surgery in 2 weeks to get the shane removed Home Medications: No Active Prescriptions or Reported Meds Time spent arranging discharge: 1-30 minutes ATTESTATION BY PHYSICIAN I have seen and examined the patient. I reviewed the documentation, medical decision making, and treatment plan as noted by the resident provider above. I agree with the findings and plan of care. Frederick Lerma MD, KEERTI K MD Apr 12, 2025 13:57
--- NOTE | 2025-04-12 15:05 | NUR ---
DC NOTE DC INSTRUCTION AND FOLLOW UP APPOINTMENT GIVEN TO PT. PIVS REMOVED FROM EARL. AC, CATHETER INTACT AND DENIES ANY PAIN. PT IS WALKED DOWNSTAIRS, REFUSED WHEELCHAIR BY AIRPLANE DISPATCH CLERK INTO VIA PRIVATE CAR. NO FURTHER COMMENTS OR CONCERNS AT THIS TIME.
== END 2025-04-12 15:15 | disposition home or self-care (01) ==
LOC: EDH 13:38 → EDBD 13:38 → INTOOBSV 16:45 → EDHIP 16:45 → 3CH 19:53
PROVIDERS: ADMIT Internal Medicine; ATTEND Internal Medicine
DX: K35.80 Unspecified acute appendicitis (principal); E87.6 Hypokalemia; Z98.890 Other specified postprocedural states; Z79.899 Other long term (current) drug therapy
CPT/HCPCS: 44970; 99285; 80048 ×2; 83690; 85025 ×2; 85610; 85730; 86850; 86900; 86901; 81001; 36415 ×2; 88304; 74177; 76705; 96376 ×2; 96375 ×2; 96365; 96366 ×2; J1100; J1885; J7030 ×3; J3490 ×4; J3010 ×2; J0330; J2003; J2250; J2704; J2405; J2710; J2543 ×3; J2795; Q9967; C1769 ×3; A4649; A4930 ×2; G0378; J2270